=== PATIENT | female | born 1995 | race Two or more races ===

== ENCOUNTER 2017-09-28 11:56 | Emergency (ER) | payer OTHER ==
[~2017-09-28] VITALS: Ht 162.6 cm; Wt 73.0 kg
[2017-09-28 12:11] VITALS: Ht 162.6 cm; Wt 73.0 kg
== END 2017-09-28 13:45 | disposition home or self-care (01) ==
LOC: ED 11:56
DX: H10.9 Unspecified conjunctivitis (principal)